=== PATIENT | female | born 1990 | race Caucasian/White ===

== ENCOUNTER 2021-01-02 17:42 | Emergency (ER) | payer MEDICAID, OTHER ==
[~2021-01-02] VITALS: Ht 157.5 cm; Wt 64.0 kg
[~2021-01-02 17:42] MED LIST: FERR325T6 MT; IBUP-2028 PO; MULT-1146 MT
[2021-01-02] MEDS ORDERED: SODIUM CHLORIDE 0.9% 1,000 ML IV ONE (21:30)
[2021-01-02] MEDS ORDERED: MECLIZINE 25MG TABLET PO ONE (21:45)
[2021-01-02 21:59] LABS: BASOPHILS % 0.7 % (0.0-2.0); CHLORIDE 107 mEq/L (98-107); EOSINOPHILS % 2.3 % (0.0-5.0); HEMATOCRIT. 44.5 % (36.0-48.0); HEMOGLOBIN. 14.6 g/dL (12.0-16.0); LYMPHOCYTES % 41.7 % (20.0-50.0); MEAN CORPUSCULAR HEMOGLOBIN 30.6 pg (28.0-32.0); MEAN CORPUSCULAR VOLUME 93.5 fL (81.0-99.0); MONOCYTES % 6.1 % (2.0-8.0); NEUTROPHILS % 49.2 % (40.0-76.0); PLATELET 382 x1000/uL (130-400); RED BLOOD CELL COUNT 4.75 mill/uL (4.2-5.4); RED CELL DISTRIBUTION WIDTH 14.2 % (11.6-14.6)
[2021-01-02 22:02] LABS: HCG SCREEN NEGATIVE
[2021-01-02] MEDS ORDERED: LORAZEPAM 2MG/ML CPJ IV ONE (23:00)
[2021-01-02] MEDS ORDERED: MECL-159 MT (23:16)
[2021-01-03] MEDS ORDERED: SODIUM CHLORIDE 0.9% 1,000 ML IV ONE (00:15)
[2021-01-03 00:51] LABS: CLARITY URINE CLEAR (CLEAR); COLOR URINE ORANGE (YELLOW); KETONES URINE NEGATIVE (NEGATIVE); LEUKOCYTE ESTERASE URINE TRACE (NEGATIVE); NITRITE URINE NEGATIVE (NEGATIVE); OCCULT BLOOD URINE 3+ (NEGATIVE); PROTEIN URINE NEGATIVE (NEGATIVE); SPECIFIC GRAVITY URINE 1.008 (1.005-1.030); UROBILINOGEN URINE 0.2 E.U./dL (0.2-1.0)
[2021-01-03] MEDS ORDERED: MECLIZINE 25MG TABLET PO SCH (01:15)
[2021-01-03 01:20] VITALS: BP 108/59
== END 2021-01-03 01:25 | disposition home or self-care (01) ==
LOC: ER 17:42
DX: H81.399 Other peripheral vertigo, unspecified ear (principal)
CPT/HCPCS: 36415; 70450; 80053; 81003; 82533; 84443; 84703; 85025; 93005; 96361; 96374; 99285; J2060; J7030; J8597